=== PATIENT | female | born 1990 | race Caucasian/White ===

== ENCOUNTER 2024-01-08 16:28 | Outpatient (REF) | payer OTHER, SELFPAY ==
--- NOTE | 2024-01-08 14:20 | PAPFT_PTH ---
PATIENT: Kitty Santiago LOC: [facility] U#:[id number] AGE/SX: 33/F ROOM: RE01/08/[address]: Jaymie Yuen : 1990 BED: DIS: 01/08/2024 SPEC #: [id number] RECD: 01/08/24 17:35 STATUS: OSCAR REAparna #: [id number] ABEBE: 01/08/24 14:[address]: Jaymie Yuen DEPT: [facility] Cytology RECD BY: Kelsie Abbott ENTERED: 01/08/24 17:35 SP TYPE: PAPFT LAUREN DR: Unknown,Unknown Tissues: 1 - CX/ENDOCX FOR PAP SMEARS Procedures: PAP THIN PREP/UVM Screening HPV DNA PROBE Comments: [id number]
== END 2024-01-08 16:29 | disposition home or self-care (01) ==
LOC: LBN 16:28
PROVIDERS: Visit Provider Obstetrics & Gynecology Gynecology
DX: Z12.4 Encounter for screening for malignant neoplasm of cervix (principal); Z11.51 Encounter for screening for human papillomavirus (HPV)
CPT/HCPCS: 88142; 87624

== ENCOUNTER 2025-01-11 22:43 | Emergency (ER) | payer OTHER, SELFPAY ==
[2025-01-11 23:00] VITALS: BP 122/80; PULSE 120; RESP 20; TEMP 35.9; O2SAT 93
[2025-01-11 23:39] LABS: BE (Venous) 5 mmol/L (-2-3); HCO3 (Venous) 28 mmol/L (23-28); O2 Sat (Venous) 71 %; TCO2 (Venous) 25 mmol/L (24-29); pCO2 (Venous) 38 mmHg (41-51); pH (Venous) 7.48 (7.31-7.41); pO2 (Venous) 35 mmHg
[2025-01-11 23:40] LABS: Abs Immature Grans 0.06 10^3/uL (0.0-0.06); Absolute Basophil Count 0.06 10^3/uL (0.0-0.2); Absolute Eosinophil Count 0.13 10^3/uL (0.0-0.7); Absolute Lymphocyte Count 1.12 10^3/uL (1.2-3.4); Absolute Monocyte Count 0.49 10^3/uL (0.1-0.8); Absolute Neutrophil Count 7.24 10^3/uL (1.2-6.7); Basophils % 0.7 %; Eosinophils % 1.4 %; HCT 37.4 % (36.0-46.0); HGB 13.4 g/dL (11.2-15.7); Immature Grans % 0.7 %; Lymphocytes % 12.3 %; MCH 32.1 pg (27.0-33.0); MCHC 35.8 % (32.0-36.0); MCV 90 fL (80-95); MPV 9.9 fL (8.0-11.0); Monocytes % 5.4 %; Neutrophils % 79.5 %; Platelet Count 194 10^3/uL (130-400); RBC 4.18 10^6/uL (3.93-5.22); RDW 12.7 % (11.7-14.6); RDW-SD 41.8 fL
[2025-01-11] MEDS: Lactated Ringers 1,000 ML 1000 ML IV (23:40)
[2025-01-11] MEDS: Albuterol/Ipratropium 3 ML UPD VIAL UPD (23:40)
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
[2025-01-11 23:52] LABS: COVID-19 PCR Negative (Negative); Influenza A PCR Negative (Negative); Influenza B PCR Positive (Negative); RSV PCR Negative (Negative)
[2025-01-12] VITALS (39 sets, daily range): BP systolic 105–117; BP diastolic 60–69; PULSE 107–133; RESP 14–28; TEMP 36.7; O2SAT 87–99
[2025-01-12 00:02] LABS: Source Nasopharynx
[2025-01-12 00:06] LABS: ALT 162 U/L (14-59); AST 83 U/L (15-37); Albumin 2.9 g/dL (3.4-5.0); Alkaline Phosphatase 183 U/L (46-116); BUN 10 mg/dL (7-18); CREATININE 0.7 mg/dL (0.55-1.02); Calcium 9.8 mg/dL (8.5-10.1); Chloride 99 mmol/L (98-107); Estimated GFR 115.59 (mL/min/1.73m2); Glucose 155 mg/dL (74-106); Sodium 137 mmol/L (136-145); Total Protein 7.7 g/dL (6.4-8.2)
[2025-01-12 00:09] LABS: Potassium 2.9 mmol/L (3.5-5.1)
[2025-01-12] MEDS: Potassium Chloride 20 MEQ TABCR 40 MEQ PO (00:13)
[2025-01-12] MEDS: POTASSIUM CHLORIDE 20 MEQ/100 ML BAG 50 MEQ IV_INF (00:14)
[2025-01-12 00:27] LABS: Magnesium 1.9 mg/dL (1.8-2.4)
[2025-01-12 00:34] LABS: D-Dimer 1830 ng/mlFEU (<500)
[2025-01-12] MEDS: Albuterol/Ipratropium 3 ML UPD VIAL 6 ML UPD (01:46)
[2025-01-12] MEDS: Budesonide/Formoterol 160/4.5 6 GM 60 PUFF INH IH (01:47)
[2025-01-12] MEDS: Normal Saline 1,000 ML 1000 ML IV (01:55)
[2025-01-12] MEDS: DOXYCYCLINE 100 MG in Normal Saline 100 ML IVPB (01:56)
[2025-01-12] MEDS: levoFLOXacin 750 MG/150 ML BAG 100 MG IVPB (02:05)
== END 2025-01-12 05:07 | disposition home or self-care (01) ==
LOC: ER 01-12 05:25
PROVIDERS: Emergency Provider Student in an Organized Health Care Education/Training Program
DX: J18.9 Pneumonia, unspecified organism (principal); E87.6 Hypokalemia
CPT/HCPCS: 36415; 80053; 82805; 87637; 94640; 96361; 96365; 96366; 96367; 99284; 83735; 85025; 85379; J1956; J3480; J7620

== ENCOUNTER 2025-04-27 01:32 | Outpatient (CLI) | payer OTHER, SELFPAY ==
[2025-04-27 12:03] LABS: ALT 26 U/L (14-59); AST 13 U/L (15-37); Albumin 3.6 g/dL (3.4-5.0); Alkaline Phosphatase 67 U/L (46-116); Bilirubin, Direct 0.2 mg/dL (0.0-0.2); Bilirubin, Total 0.6 mg/dL (0.2-1.0); Total Protein 7.3 g/dL (6.4-8.2)
== END 2025-04-27 01:33 | disposition home or self-care (01) ==
LOC: LBO 01:32
PROVIDERS: Visit Provider Student in an Organized Health Care Education/Training Program
DX: E84.9 Cystic fibrosis, unspecified (principal)
CPT/HCPCS: 36415; 80076

== ENCOUNTER 2025-05-30 16:21 | Outpatient (CLI) | payer OTHER, SELFPAY ==
[2025-05-30 17:01] LABS: ALT 25 U/L (14-59); AST 18 U/L (15-37); Albumin 3.7 g/dL (3.4-5.0); Alkaline Phosphatase 75 U/L (46-116); Bilirubin, Direct 0.1 mg/dL (0.0-0.2); Bilirubin, Total 0.5 mg/dL (0.2-1.0); Total Protein 7.4 g/dL (6.4-8.2)
== END 2025-05-30 16:22 | disposition home or self-care (01) ==
LOC: LBO 16:22
PROVIDERS: Visit Provider Student in an Organized Health Care Education/Training Program
DX: E84.9 Cystic fibrosis, unspecified (principal)
CPT/HCPCS: 36415; 80076

== ENCOUNTER 2025-07-20 13:34 | Outpatient (CLI) | payer OTHER, SELFPAY ==
[2025-07-20 15:51] LABS: ALT 22 U/L (14-59); AST 10 U/L (15-37); Albumin 3.7 g/dL (3.4-5.0); Alkaline Phosphatase 66 U/L (46-116); Bilirubin, Direct 0.2 mg/dL (0.0-0.2); Bilirubin, Total 0.7 mg/dL (0.2-1.0); Total Protein 7.2 g/dL (6.4-8.2)
== END 2025-07-20 13:35 | disposition home or self-care (01) ==
LOC: LBO 09-02 13:34
PROVIDERS: Visit Provider Student in an Organized Health Care Education/Training Program
DX: E84.9 Cystic fibrosis, unspecified (principal)
CPT/HCPCS: 36415; 80076

== ENCOUNTER 2025-07-28 04:21 | Outpatient (CLI) | payer OTHER, SELFPAY ==
--- NOTE | 2025-08-01 10:02 | W.PFT ---
Date of service: 07/28/25 Time of Service: 15:11 Pulmonary Function Test Result Indications: Cystic fibrosis Impression 1. Good patient effort was noted. ATS standards for reproducibility were met. 2. Spirometry showed moderate obstructive lung disease with an FEV1 of 63% (1.98 L) 3. No prior studies available for comparison
== END 2025-07-28 04:22 | disposition home or self-care (01) ==
LOC: RT 04:21
PROVIDERS: Visit Provider Internal Medicine Pulmonary Disease
DX: E84.9 Cystic fibrosis, unspecified (principal)
CPT/HCPCS: 94010